=== PATIENT | male | born 2000 | race Hispanic/Latino ===

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

== ENCOUNTER 2021-10-26 20:26 | Emergency (ER) | payer MEDICAID ==
[~2021-10-26] VITALS: Ht 177.8 cm; Wt 97.5 kg
[2021-10-26 21:19] VITALS: BP 147/85
[2021-10-26] MEDS ORDERED: IBUPROFEN 800 MG TAB PO SCH (21:45)
[2021-10-26] MEDS ORDERED: ACETAMINOPHEN 500 MG TABLET PO SCH (21:45)
[2021-10-26] MEDS ORDERED: OSELTAMIVIR PHOSPHATE 75 MG CAP PO ONE (22:00)
[2021-10-26] MEDS ORDERED: 0.9%NACL 1000ML 1,000 ML IV SCH (22:00)
[2021-10-26] MEDS ORDERED: OSEL75 PO (22:54)
[2021-10-26] MEDS ORDERED: ACET-2247 PO (22:54)
[2021-10-26] MEDS ORDERED: IBUP-2070 PO (22:54)
== END 2021-10-26 23:00 | disposition home or self-care (01) ==
LOC: EDH 20:26
DX: J10.1 Influenza due to other identified influenza virus with other respiratory manifestations (principal); E86.0 Dehydration; R50.9 Fever, unspecified; Z20.822 Contact with and (suspected) exposure to COVID-19
CPT/HCPCS: 87635; 87804 ×2; 87880; 96360; 99284; C9803; J7030

== ENCOUNTER 2022-05-12 10:38 | Emergency (ER) | payer MEDICAID ==
[~2022-05-12] VITALS: Ht 177.8 cm; Wt 102.5 kg
[~2022-05-12 10:38] MED LIST: ACET-2247 PO; IBUP-2070 PO; OSEL75 PO
[2022-05-12] MEDS ORDERED: AMOX1TAB16 PO (11:24)
[2022-05-12 11:28] VITALS: BP 175/82
== END 2022-05-12 11:31 | disposition home or self-care (01) ==
LOC: EDH 10:38
DX: H66.92 Otitis media, unspecified, left ear (principal)
CPT/HCPCS: 87804

== ENCOUNTER 2022-06-29 23:24 | Emergency (ER) | payer MEDICAID ==
[~2022-06-29] VITALS: Ht 177.8 cm; Wt 100.7 kg
[~2022-06-29 23:24] MED LIST changes: +0.9%NACL 1000ML 1,000 ML IV ONE; +AMOX1TAB16 PO
[2022-06-30 00:20] LABS: APPEARANCE,URINE CLOUDY (CLEAR); BILIRUBIN,URINE NEGATIVE (NEGATIVE); COLOR,URINE YELLOW (YELLOW); GLUCOSE, URINE (UA) NEGATIVE (NEGATIVE); KETONES,URINE NEGATIVE (NEGATIVE); LEUKOCYTE ESTERASE ,URINE NEGATIVE Leu/uL (NEGATIVE); NITRATE,URINE NEGATIVE (NEGATIVE); OCCULT BLOOD,URINE NEGATIVE (NEGATIVE); PROTEIN,URINE 70 mg/dL (NEGATIVE); UROBILINOGEN,URINE 0.2 mg/dL (0.2-1.0)
[2022-06-30 00:30] LABS: POTASSIUM 3.5 mmol/L (3.5-5.1)
[2022-06-30 00:35] LABS: ALBUMIN 4.6 g/dL (3.5-5.0); TOTAL PROTEIN, SERUM 7.7 g/dL (6.0-8.3)
[2022-06-30 00:36] LABS: BASOPHILS % (AUTO) 0.1 % (0.0-5.0); EOSINOPHILS % (AUTO) 0.2 % (0.0-8.0); HEMATOCRIT 44.4 % (42-54); LYMPHOCYTES % (AUTO) 5.2 % (21.0-51.0); MEAN CORPUSCULAR HGB CONC 34.7 g/dL (32.0-36.0); MEAN CORPUSCULAR VOLUME 86.4 fL (80-100); MONOCYTES % (AUTO) 4.3 % (3.0-13.0); NEUTROPHILS % (AUTO) 89.9 % (40.0-77.0); PLATELET COUNT (AUTO) 189 K/uL (130-400); RED BLOOD CELL COUNT(AUTO) 5.14 MIL/uL (4.50-6.20); RED CELL DISTRIBUTION WIDTH 12.3 % (11.0-15.5); WHITE BLOOD COUNT (AUTO) 8.8 K/uL (4.8-10.8)
[2022-06-30] MEDS ORDERED: 0.9%NACL 1000ML 1,000 ML IV ONE (01:00)
[2022-06-30] MEDS ORDERED: ONDANSETRON 4MG INJ IVP ONE (01:00)
[2022-06-30] MEDS ORDERED: LOPERAMIDE HCL 2 MG CAP PO ONE (01:00)
[2022-06-30 01:21] LABS: AMPHET/METH SCREEN,URINE NEGATIVE (NEGATIVE); BARBITURATE SCREEN, URINE NEGATIVE (NEGATIVE); BENZODIAZEPINES SCREEN,URINE NEGATIVE (NEGATIVE); CANNABINOID SCREEN,URINE NEGATIVE (NEGATIVE); COCAINE SCREEN,URINE POSITIVE (NEGATIVE); OPIATE SCREEN,URINE NEGATIVE (NEGATIVE); PHENCYCLIDINE SCREEN,URINE NEGATIVE (NEGATIVE)
[2022-06-30 03:00] VITALS: BP 126/65
[2022-06-30] MEDS ORDERED: ONDA4TAB10 PO (03:09)
[2022-06-30] MEDS ORDERED: DIPH1TAB PO (03:09)
== END 2022-06-30 03:32 | disposition home or self-care (01) ==
LOC: EDH 23:24
DX: R55 Syncope and collapse (principal); K52.9 Noninfective gastroenteritis and colitis, unspecified; E86.9 Volume depletion, unspecified; Z79.899 Other long term (current) drug therapy
CPT/HCPCS: 99285; 71046; 82550; 84484; 80053; 80305; 83690; 85025; 36415; 93005; 81003; 96374; 96361; J7030; J2405

== ENCOUNTER 2023-05-27 21:26 | Emergency (ER) | payer BC, MEDICAID ==
[~2023-05-27] VITALS: Ht 177.8 cm; Wt 97.5 kg
[~2023-05-27 21:26] MED LIST changes: -0.9%NACL 1000ML 1,000 ML IV ONE; +DIPH1TAB PO; +ONDA4TAB10 PO
[2023-05-27 22:17] LABS: RAPID GROUP A STREP negative (NEGATIVE)
[2023-05-27 22:21] LABS: SARS-CoV-2, RNA, NAAT NEGATIVE SARS CoV-2 (NEGATIVE)
[2023-05-27 22:26] LABS: INFLUENZA TYPE A Negative For Type A (NEGATIVE); INFLUENZA TYPE B Negative For Type B (NEGATIVE)
[2023-05-27] MEDS ORDERED: GUAI600T50 PO (22:43)
[2023-05-27] MEDS ORDERED: BENZ-39 PO (22:43)
[2023-05-27 22:58] VITALS: BP 128/78; PULSE 72; RESP 20; O2SAT 100
== END 2023-05-27 23:00 | disposition home or self-care (01) ==
LOC: EDH 21:26
DX: R05.9 Cough, unspecified (principal); Z79.899 Other long term (current) drug therapy; Z20.822 Contact with and (suspected) exposure to COVID-19
CPT/HCPCS: 99283; 71045; 87635; 87880; 87804 ×2; C9803

== ENCOUNTER 2024-08-03 20:49 | Emergency (ER) | payer BC ==
[~2024-08-03] VITALS: Ht 180.3 cm; Wt 94.8 kg
[~2024-08-03 20:49] MED LIST changes: +ALBU18HF7 IH; +BENZ-39 PO; +GUAI600T50 PO; +ONDA-243 PO; -ONDA4TAB10 PO
[2024-08-03 20:50] VITALS: BP 151/93; PULSE 111; RESP 20; TEMP 100
[2024-08-03 22:30] LABS: BASOPHILS # (AUTO) 0.02 K/uL (0.00-0.20); BASOPHILS % (AUTO) 0.2 % (0.0-5.0); EOSINOPHILS # (AUTO) 0.34 K/uL (0.00-0.70); HEMATOCRIT 44.9 % (42-54); IMMATURE GRANULOCYTE ABSOLUTE 0.02 K/uL (0-1); LYMPHOCYTES # (AUTO) 1.5 K/uL (1.0-4.8); LYMPHOCYTES % (AUTO) 17.6 % (21.0-51.0); MEAN CORPUSCULAR HEMOGLOBIN 29.7 pg (27.0-33.0); MEAN CORPUSCULAR HGB CONC 34.1 g/dL (32.0-36.0); MONOCYTES # (AUTO) 0.5 K/uL (0.1-1.0); MONOCYTES % (AUTO) 5.6 % (3.0-13.0); NEUTROPHILS # (AUTO) 6.2 K/uL (1.8-7.7); NEUTROPHILS % (AUTO) 72.4 % (40.0-77.0); PLATELET COUNT (AUTO) 277 K/uL (130-400); RED BLOOD CELL COUNT(AUTO) 5.16 MIL/uL (4.50-6.20); RED CELL DISTRIBUTION WIDTH 11.7 % (11.0-15.5); WHITE BLOOD COUNT (AUTO) 8.5 K/uL (4.8-10.8)
[2024-08-03 22:39] LABS: CREATININE 1.1 mg/dL (0.5-1.3); POTASSIUM 3.4 mmol/L (3.5-5.1)
[2024-08-03 23:04] LABS: RAPID PLASMA REAGIN NONREACTIVE (NONREACTIVE)
[2024-08-03 23:05] LABS: MONOTEST NEGATIVE (NEGATIVE)
[2024-08-03] MEDS: ketOROlac 15MG/ML VIAL (15MG/ML) IV ONE (23:08)
[2024-08-03] MEDS: DiphenhydrAMINE HCL 50 MG/ML VIAL IV ONE (23:08)
[2024-08-03] MEDS: Solu-medROL 125MG VIAL IVP ONE (23:08)
[2024-08-03] MEDS: 0.9%NACL 1000ML 1,000 ML IV ONE (23:09)
[2024-08-03] MEDS: acetaMINOPHEN 325 MG TAB PO ONE (23:09)
[2024-08-03] MEDS: FAMOTIDINE 20MG VIAL IV ONE (23:10)
[2024-08-03 23:17] LABS: HIV 1&2 ANTIBODY Non-Reactive (Negative); HIV-1 p24 Antigen Non-Reactive (Negative)
[2024-08-03 23:58] VITALS: TEMP 98.7
[2024-08-04] MEDS ORDERED: DOXY100C5 PO (00:25)
--- NOTE | 2024-08-04 00:26 | ERN ---
General Chief Complaint: Skin Rash/Abscess Stated Complaint: RASH Time Seen by MD: 20:51 Time Seen by Midlevel: 20:51 Source: patient History of Present Illness Initial Comments Patient is a 23-year-old male with no significant past medical history presenting to the emergency department with a rash to bilateral upper and lower extremities that started on July 28, 2024. Patient states the rash initially started in his upper extremities and started spreading distally. Denies any recent travel. Denies any fever, or any other symptoms at this time. Allergies: Coded Allergies: No Known Drug Allergies (Unverified Allergy, Unknown, 04/21/19) Home Meds Active Scripts Doxycycline Hyclate (Doxycycline Hyclate) 100 Mg Capsule, 1 CAP PO BID for 14 Days, #28 CAP 0 Refills Prov:ISRAEL ZURITA 08/04/24 Albuterol Sulfate (Ventolin Hfa) 90 Mcg Hfa.aer.ad, 2 PUFF IH Q4HPRN PRN for wheezing for 30 Days, #18 GM 0 Refills Prov:LEE KNUTSON MD 08/02/24 Guaifenesin (Mucinex) 600 Mg Tablet.er, 600 MG PO BID PRN for COUGH/COLD SYMP TOMS, #15 TAB Prov:BAILEY VARGAS 05/27/23 Benzonatate (Tessalon Perles) 100 Mg Cap, 100 MG PO TID for cough, #30 CAP 0 Refills Prov:BAILEY VARGAS 05/27/23 Ibuprofen (Ibuprofen) 600 Mg Tablet, 600 MG PO Q6H PRN for PAIN for 10 Days, #40 TAB Prov:CHANTAL AVILESP 09/14/22 Ondansetron (Ondansetron Odt) 4 Mg Tab.rapdis, 4 MG PO TID PRN for NAUSEA/VOMITING, #15 TAB 0 Refills Prov:ACE GEIGER MD 06/30/22 Diphenoxylate HCl/Atropine (Lomotil Tablet) 1 Each Tablet, 2 TAB PO Q12H PRN for DIARRHEA for 5 Days, #10 TAB 0 Refills Prov:ACE GEIGER MD 06/30/22 Amoxicillin/Potassium Clav (Amox Tr-K Clv 875-125 mg Tab) 1 Each Tablet, 1 EACH PO BID for 7 Days, #14 TAB Prov:FER ALVAREZ MD 05/12/22 Acetaminophen (Tylenol) 325 Mg Tablet, 650 MG PO Q4HPRN, #50 TAB Prov:EVER ZURITA 10/26/21 Ibuprofen (Ibuprofen) 600 Mg Tablet, 600 MG PO TIDP PRN for PAIN, #45 TAB Prov:EVER ZURITA 10/26/21 Oseltamivir Phosphate (Tamiflu) 75 Mg Cap, 75 MG PO BID for 5 Days, #10 CAP Prov:EVER ZURITA 10/26/21 Past Medical History Past Medical History: No Pertinent History Past Surgical History: None ROS Dictation CONSTITUTIONAL: Negative except for HPI HEAD/FACE: Negative except for HPI EENT: Negative except for HPI RESPIRATORY: Negative except for HPI GASTROINTESTINAL/ABDOMINAL: Negative except for HPI GENITOURINARY: Negative except for HPI MUSCULOSKELETAL: Negative except for HPI INTEGUMENTARY: Negative except for HPI NEUROLOGICAL/PSYCH: Negative except for HPI HEMATOLOGIC/LYMPHATIC: Negative except for HPI All Systems Negative, Except as noted above. 13 point review of systems assessed and all negative except for above. Physical Exam Physical Exam Dictation Vital Signs reviewed General Appearance: Alert, oriented x 3, no acute distress, well developed, nourished. Head and Face: non-traumatic. Eyes: PERRL, pink conjunctivas, eyelid no trauma, anterior chamber with arcus senilis. Ears: Pinnas intact and no signs of trauma or erythema ear canals clear and no d ischarge TM no erythema Nose: No discharge, no bleeding. Oropharynx: Mouth normal, tongue pink, pharynx clear,no erythema, tonsils no exudates, no abscesses noted, mucous membrane moist Neck: Supple, non-tender, no thyromegaly, no masses, no JVD, no bruits Breast:Deferred Chest:No tenderness, no crepitus, no paradoxical movement, no retractions Lungs:Clear, well-ventilated, symmetric, no rales, no wheezing, no rhonchi, no stridor, good breath sounds bilaterally Heart: Regular rate, regular rhythm, no murmur, no gallops Vascular: no peripheral edema, Abdomen: Soft, positive bowel sounds, nondistended, no guarding, nontender, no rebound, no masses no hepatomegaly, no splenomegaly, no Padilla's sign, no hernias. Rectal: Deferred Genital: Deferred Neurological: Normal speech, motor function intact, sensory function intact Musculoskeletal: Neck nontender, full range of motion, back nontender, full range of motion, Extremities: nontender, full range of motion Skin: Generalized macular papular rash to bilateral upper extremities, bilateral lower extremities, torso, and bilateral palms Lymphatic: Deferred Results Laboratory and Microbiology Lab and Micro Result Laboratory Tests Test 08/03/24 22:22 White Blood Count 8.5 K/uL (4.8-10.8) Red Blood Count 5.16 MIL/uL (4.50-6.20) Hemoglobin 15.3 g/dL (14.0-18.0) Hematocrit 44.9 % (42-54) Mean Corpuscular Volume 87.0 fL (79-99) Mean Corpuscular Hemoglobin 29.7 pg (27.0-33.0) Mean Corpuscular Hemoglobin Concent 34.1 g/dL (32.0-36.0) Red Cell Distribution Width 11.7 % (11.0-15.5) Platelet Count 277 K/uL (130-400) Mean Platelet Volume 9.2 fL (7.5-10.5) Immature Granulocyte % (Auto) 0.2 % (0-1) Neutrophils (%) (Auto) 72.4 % (40.0-77.0) Lymphocytes (%) (Auto) 17.6 % (21.0-51.0) L Monocytes (%) (Auto) 5.6 % (3.0-13.0) Eosinophils (%) (Auto) 4.0 % (0.0-8.0) Basophils (%) (Auto) 0.2 % (0.0-5.0) Neutrophils # (Auto) 6.2 K/uL (1.8-7.7) Lymphocytes # (Auto) 1.5 K/uL (1.0-4.8) Monocytes # (Auto) 0.5 K/uL (0.1-1.0) Eosinophils # (Auto) 0.34 K/uL (0.00-0.70) Basophils # (Auto) 0.02 K/uL (0.00-0.20) Absolute Immature Granulocyte (auto 0.02 K/uL (0-1) Nucleated Red Blood Cells 0.0 % (0.0-0.19) Sodium Level 141 mmol/L (136-145) Potassium Level 3.4 mmol/L (3.5-5.1) L Chloride Level 105 mmol/L (101-111) Carbon Dioxide Level 28 mmol/L (21-32) Blood Urea Nitrogen 19 mg/dL (7-18) H Creatinine 1.1 mg/dL (0.5-1.3) Glomerular Filtration Rate Calc 97 mL/min (>90) Random Glucose 115 mg/dL (70-105) H Total Calcium 8.9 mg/dL (8.5-10.1) Rapid Plasma Reagin NONREACTIVE (NONREACTIVE) Treponema pallidum Antibody (EIA) Non Reactive (Non Reactive) Brucella Total Antibody Agglutin NEGATIVE (NEGATIVE) Monoscreen NEGATIVE (NEGATIVE) HIV (1&2) Antibody Non-Reactive (Negative) HIV P24 Antigen, Qualitative Non-Reactive (Negative) Paratyphoid A Antibody NEGATIVE (NEGATIVE) Paratyphoid B Antibody NEGATIVE (NEGATIVE) Proteus OX-19 Antibody NEGATIVE (NEGATIVE) Typhoid H Antibody NEGATIVE (NEGATIVE) Typhoid O Antibody NEGATIVE (NEGATIVE) Labs Reviewed?: Yes MDM MDM: Differential diagnosis: Syphilis, Akira mountain spotted fever, Lyme disease, viral exanthem There are no social concerns with this patient. Prescription drug management Prescriptions will include: Doxycycline Medical management and examination interpretation discussions were had by me with other qualified healthcare professionals as indicated for the patient's care. ED Course Orders Procedure Category Date Status Time Cbc With Differential LAB 08/03/24 Complete 21:02 Basic Metabolic Panel LAB 08/03/24 Complete 21:02 0.9%Nacl 1000ml (Ns PHA 08/03/24 Complete 1000ml) 21:30 Methylprednisolone PHA 08/03/24 Complete Succ 125mg (Solu-Medr 21:30 Diphenhydramine Hcl PHA 08/03/24 Complete (Benadryl Inj) 21:30 Famotidine 20mg Vial PHA 08/03/24 Complete (Pepcid 20mg Vial) 21:30 Febrile Agglutinins LAB 08/03/24 Complete Panel 21:05 Monotest LAB 08/03/24 Complete 21:05 Hiv 1-2 W/Reflex To LAB 08/03/24 Complete Confirm 21:05 Rapid Plasma Reagin LAB 08/03/24 Complete 21:05 Treponema Pallidum Ab LAB 08/03/24 Complete Igg-Tppa 21:05 Ketorolac PHA 08/03/24 Complete Tromethamine 15mg/Ml 23:00 Acetaminophen 325 Tab PHA 08/03/24 Complete (Tylenol 325mg Tab 23:00 Vital Signs Date Time Temp Pulse Resp B/P (MAP) Pulse Ox O2 Delivery O2 Flow Rate FiO2 08/03/24 23:09 100.0 08/03/24 20:50 100.0 111 20 151/93 97 Room Air DX & DISP Disposition: Discharge Departure Impression: Primary Impression: Generalized rash Condition: Stable Scripts Doxycycline Hyclate (Doxycycline Hyclate) 100 Mg Capsule 1 CAP PO BID for 14 Days, #28 CAP 0 Refills Prov: ISRAEL ZURITA 08/04/24 Additional Instructions: Your blood work today is unremarkable. Have started you on antibiotics for outpatient management. I have given you an outpatient follow up with an infectious disease specialist as well as a plasterer maintenance. Referrals: SELF,REFERRAL (PCP) YENY GORDON MD, EMMANUEL O MD Time of Disposition: 00:25 I have reviewed the case, and I agree with, Diagnosis and Plan I performed the substantive portion of the visit. I have reviewed and personally made and approve the management plan that is documented in the note by myself or the BANDAR. I acknowledge for responsibility for the patient's ross gement plan. ISRAEL ZURITA Aug 04, 2024 00:26
== END 2024-08-04 00:34 | disposition home or self-care (01) ==
LOC: EDH 20:49
DX: R21 Rash and other nonspecific skin eruption (principal); Z79.899 Other long term (current) drug therapy; Z79.2 Long term (current) use of antibiotics
CPT/HCPCS: 99284; 96374; 96375; 86780; 86592; 80048; 85025; 86308; 86000 ×6; 86701; 87390; 36415; J1885; J2919; J1200; J3490; J7030

== ENCOUNTER 2024-08-06 13:23 | Emergency (ER) | payer BC ==
[~2024-08-06] VITALS: Ht 180.3 cm; Wt 94.8 kg
[~2024-08-06 13:23] MED LIST changes: +DOXY100C5 PO
[2024-08-06 13:46] LABS: BASOPHILS # (AUTO) 0.03 K/uL (0.00-0.20); BASOPHILS % (AUTO) 0.5 % (0.0-5.0); EOSINOPHILS # (AUTO) 0.09 K/uL (0.00-0.70); EOSINOPHILS % (AUTO) 1.5 % (0.0-8.0); HEMATOCRIT 44.5 % (42-54); IMMATURE GRANULOCYTE ABSOLUTE 0.02 K/uL (0-1); LYMPHOCYTES # (AUTO) 2.1 K/uL (1.0-4.8); LYMPHOCYTES % (AUTO) 33.9 % (21.0-51.0); MEAN CORPUSCULAR HEMOGLOBIN 29.8 pg (27.0-33.0); MEAN CORPUSCULAR HGB CONC 34.6 g/dL (32.0-36.0); MEAN CORPUSCULAR VOLUME 86.2 fL (79-99); MONOCYTES # (AUTO) 0.4 K/uL (0.1-1.0); MONOCYTES % (AUTO) 6.3 % (3.0-13.0); NEUTROPHILS # (AUTO) 3.5 K/uL (1.8-7.7); NEUTROPHILS % (AUTO) 57.5 % (40.0-77.0); PLATELET COUNT (AUTO) 256 K/uL (130-400); RED BLOOD CELL COUNT(AUTO) 5.16 MIL/uL (4.50-6.20); RED CELL DISTRIBUTION WIDTH 12.1 % (11.0-15.5); WHITE BLOOD COUNT (AUTO) 6.1 K/uL (4.8-10.8)
--- NOTE | 2024-08-06 13:46 | EKG ---
[facility] Test Date: 2024-08-06 Test Time: 13:44:27 Pat Name: JUANJO COELHO Department: ED Room: Gender: M Waste Recycler: syncope : 2000 Requested By: VANESSA CASSIDY Order Number: [id number] Reading MD: Shahab Harris Measurements Intervals [place] Rate: 75 P: 42 ID: [id number] QRS: 2 QRSD: 93 T: 20 QT: 365 QTc: 408 Interpretive Statements Sinus rhythm Compared to ECG 06/30/2022 00:00:33 No significant changes RSR' IN V1 OR V2, PROBABLY NORMAL VARIANT Electronically Signed On 08-07-2024 10:23:22 DOCENT COORDINATOR by Shahab Harris Please click the below link to view image of tracing.
[2024-08-06] MEDS: 0.9%NACL 1000ML 1,000 ML IV ONE (13:48)
[2024-08-06] MEDS: ondanSETRON 4MG INJ IVP ONE (13:48)
[2024-08-06 13:52] LABS: CREATININE 1.1 mg/dL (0.5-1.3); POTASSIUM 3.2 mmol/L (3.5-5.1)
[2024-08-06 14:01] LABS: BILIRUBIN,TOTAL 0.7 mg/dL (0.2-1.0); TOTAL PROTEIN, SERUM 7.6 g/dL (6.0-8.3)
--- NOTE | 2024-08-06 14:30 | NUR ---
PT REMINDED OF URINE ORDER AND ENCOURAGED TO PROVIDE UA SPECIMEN
[2024-08-06 14:41] LABS: ADD UA MICROSCOPIC YES; APPEARANCE,URINE CLOUDY (CLEAR); BILIRUBIN,URINE NEGATIVE (NEGATIVE); COLOR,URINE YELLOW (YELLOW); GLUCOSE, URINE (UA) NEGATIVE (NEGATIVE); KETONES,URINE NEGATIVE (NEGATIVE); LEUKOCYTE ESTERASE ,URINE NEGATIVE Leu/uL (NEGATIVE); NITRATE,URINE NEGATIVE (NEGATIVE); OCCULT BLOOD,URINE NEGATIVE (NEGATIVE); PROTEIN,URINE 30 mg/dL (NEGATIVE); UROBILINOGEN,URINE 0.2 mg/dL (0.2-1.0)
[2024-08-06 14:44] LABS: BACTERIA,URINE RARE /HPF (None Seen); MUCUS,URINE FEW LPF (None Seen); SQUAMOUS EPITHELIAL CELL,UR RARE /HPF (0-2)
[2024-08-06 14:49] LABS: AMPHET/METH SCREEN,URINE NEGATIVE (NEGATIVE); BARBITURATE SCREEN, URINE NEGATIVE (NEGATIVE); BENZODIAZEPINES SCREEN,URINE NEGATIVE (NEGATIVE); CANNABINOID SCREEN,URINE NEGATIVE (NEGATIVE); COCAINE SCREEN,URINE NEGATIVE (NEGATIVE); OPIATE SCREEN,URINE NEGATIVE (NEGATIVE); PHENCYCLIDINE SCREEN,URINE NEGATIVE (NEGATIVE)
[2024-08-06 15:29] VITALS: BP 115/67; PULSE 73; RESP 18; TEMP 98.4; O2SAT 100
--- NOTE | 2024-08-06 15:30 | ERN ---
ED Note History of Present Illness Stated Complaint: SYNCOPE Chief Complaint: Syncope Time Seen by MD: 13:27 Dictation: Patient is a 23-year-old male who presented to the ER after episode of syncope, stated he pass out, on his way to the hospital he vomiting also. Patient has been treated for a rash with antibiotics he states. He does have a rash over his body Allergies: Coded Allergies: No Known Drug Allergies (Unverified Allergy, Unknown, 04/21/19) Home Meds Active Scripts Doxycycline Hyclate (Doxycycline Hyclate) 100 Mg Capsule, 1 CAP PO BID for 14 Days, #28 CAP 0 Refills Prov:ISRAEL ZURITA 08/04/24 Albuterol Sulfate (Ventolin Hfa) 90 Mcg Hfa.aer.ad, 2 PUFF IH Q4HPRN PRN for wheezing for 30 Days, #18 GM 0 Refills Prov:LEE KNUTSON MD 08/02/24 Guaifenesin (Mucinex) 600 Mg Tablet.er, 600 MG PO BID PRN for COUGH/COLD SYMPTOMS, #15 TAB Prov:BAILEY VARGAS 05/27/23 Benzonatate (Tessalon Perles) 100 Mg Cap, 100 MG PO TID for cough, #30 CAP 0 Refills Prov:BAILEY VARGAS 05/27/23 Ibuprofen (Ibuprofen) 600 Mg Tablet, 600 MG PO Q6H PRN for PAIN for 10 Days, #40 TAB Prov:CHANTAL AVILESP 09/14/22 Ondansetron (Ondansetron Odt) 4 Mg Tab.rapdis, 4 MG PO TID PRN for NAUSEA/VOMITING, #15 TAB 0 Refills Prov:ACE GEIGER MD 06/30/22 Diphenoxylate HCl/Atropine (Lomotil Tablet) 1 Each Tablet, 2 TAB PO Q12H PRN for DIARRHEA for 5 Days, #10 TAB 0 Refills Prov:ACE GEIGER MD 06/30/22 Amoxicillin/Potassium Clav (Amox Tr-K Clv 875-125 mg Tab) 1 Each Tablet, 1 EACH PO BID for 7 Days, #14 TAB Prov:FER ALVAREZ MD 05/12/22 Acetaminophen (Tylenol) 325 Mg Tablet, 650 MG PO Q4HPRN, #50 TAB Prov:EVER ZURITA 10/26/21 Ibuprofen (Ibuprofen) 600 Mg Tablet, 600 MG PO TIDP PRN for PAIN, #45 TAB Prov:EVER ZURITA SIMRAN 10/26/21 Oseltamivir Phosphate (Tamiflu) 75 Mg Cap, 75 MG PO BID for 5 Days, #10 CAP Prov:EVER ZURITA SIMRAN 10/26/21 Past Medical History Past Medical History: No Pertinent History Surgical History: None Review of System Dictation NEGATIVE EXCEPT PER HPI Constitutional: Negative for fever,chills, and weight loss Eyes: Negative for injury, pain,redness, and discharge ENT: Negative for injury,pain or swelling Cardiovascular: denies chest pain, palpitations, and edema Respiratory: Negative for shortness of breath, cough, and wheezing, Abdomen/GI: Negative for abdominal pain, nausea, vomiting, diarrhea, and constipation Back: Negative for injury and pain : Negative for injury, bleeding and discharge MS/Extremity: Negative for injury and deformity Skin: Has rash all over his body Neuro: Syncope episode Psych: Negative for suicide ideation, homicidal ideation, and hallucinations Initial Vital Sign VS Vital Signs Date Time Temp Pulse Resp B/P (MAP) Pulse Ox O2 Delivery O2 Flow Rate FiO2 08/06/24 13:26 98.4 105 16 144/89 99 Room Air 08/06/24 15:29 0 21 Physical Exam Dictation General: awake, alert, NAD Head/Face: Normocephalic, atraumatic Eyes: PERRL, EOMI, vision at baseline ENT: oral cavity clear, TMs clear, no signs of infection Neck: Trachea midline, supple, no nuchal rigidity Cardiovascular: RRR, normal S1/S2, No MRGs, no JVD Respiratory: CTAB, no respiratory distress, No rales or wheezes Abdomen: Soft , no tender Skin: Rash over his body, with a erythema MS/Extremity: Pulses equal, no cyanosis, neurovascular intact, FROM Neuro: COAx4, GCS 15, strength 5/5, CN 2-12 intact, normal cerebellar exam, normal gait, Psych: Normal behavior, mood, and affect normal Results (Laboratory/Radiology) Laboratory/Radiology Laboratory Tests Test 08/06/24 13:35 08/06/24 14:31 White Blood Count 6.1 K/uL (4.8-10.8) Red Blood Count 5.16 MIL/uL (4.50-6.20) Hemoglobin 15.4 g/dL (14.0-18.0) Hematocrit 44.5 % (42-54) Mean Corpuscular Volume 86.2 fL (79-99) Mean Corpuscular Hemoglobin 29.8 pg (27.0-33.0) Mean Corpuscular Hemoglobin Concent 34.6 g/dL (32.0-36.0) Red Cell Distribution Width 12.1 % (11.0-15.5) Platelet Count 256 K/uL (130-400) Mean Platelet Volume 9.5 fL (7.5-10.5) Immature Granulocyte % (Auto) 0.3 % (0-1) Neutrophils (%) (Auto) 57.5 % (40.0-77.0) Lymphocytes (%) (Auto) 33.9 % (21.0-51.0) Monocytes (%) (Auto) 6.3 % (3.0-13.0) Eosinophils (%) (Auto) 1.5 % (0.0-8.0) Basophils (%) (Auto) 0.5 % (0.0-5.0) Neutrophils # (Auto) 3.5 K/uL (1.8-7.7) Lymphocytes # (Auto) 2.1 K/uL (1.0-4.8) Monocytes # (Auto) 0.4 K/uL (0.1-1.0) Eosinophils # (Auto) 0.09 K/uL (0.00-0.70) Basophils # (Auto) 0.03 K/uL (0.00-0.20) Absolute Immature Granulocyte (auto 0.02 K/uL (0-1) Nucleated Red Blood Cells 0.0 % (0.0-0.19) Sodium Level 138 mmol/L (136-145) Potassium Level 3.2 mmol/L (3.5-5.1) L Chloride Level 102 mmol/L (101-111) Carbon Dioxide Level 24 mmol/L (21-32) Blood Urea Nitrogen 20 mg/dL (7-18) H Creatinine 1.1 mg/dL (0.5-1.3) Glomerular Filtration Rate Calc 97 mL/min (>90) Random Glucose 97 mg/dL (70-105) Total Calcium 8.9 mg/dL (8.5-10.1) Total Bilirubin 0.7 mg/dL (0.2-1.0) Aspartate Amino Transf (AST/SGOT) 9 U/L (10-37) L Alanine Aminotransferase (ALT/SGPT) 18 U/L (12-78) Alkaline Phosphatase 78 U/L (50-136) Total Protein 7.6 g/dL (6.0-8.3) Albumin 4.0 g/dL (3.5-5.0) Urine Color YELLOW (YELLOW) Urine Appearance CLOUDY (CLEAR) H Urine pH 7.0 (5.0-8.0) Urine Specific [place] 1.023 (1.001-1.031) Urine Protein 30 mg/dL (NEGATIVE) H Urine Glucose (UA) NEGATIVE mg/dL (NEGATIVE) Urine Ketones NEGATIVE mg/dL (NEGATIVE) Urine Occult Blood NEGATIVE (NEGATIVE) Urine Nitrate NEGATIVE (NEGATIVE) Urine Bilirubin NEGATIVE mg/dL (NEGATIVE) Urine Urobilinogen 0.2 mg/dL (0.2-1.0) Urine Leukocyte Esterase NEGATIVE [place]/uL Urine RBC 2-5 /HPF (0-1) H Urine WBC 2-5 /HPF (0-1) H Urine Squamous Epithelial Cells RARE /HPF (0-2) Urine Bacteria RARE /HPF (None Seen) Urine Opiates Screen NEGATIVE (NEGATIVE) Urine Barbiturates Screen NEGATIVE (NEGATIVE) Urine Phencyclidine Screen NEGATIVE (NEGATIVE) Urine Amphetamines Screen NEGATIVE (NEGATIVE) Urine Benzodiazepines Screen NEGATIVE (NEGATIVE) Urine Cocaine Screen NEGATIVE (NEGATIVE) Urine Marijuana (THC) Screen NEGATIVE (NEGATIVE) ED Course ED Course Orders Procedure Category Date Status Time Drug Screen Urine LAB 08/06/24 Complete 13:29 Urinalysis Profile LAB 08/06/24 Complete 13:29 Cbc With Differential LAB 08/06/24 Complete 13:29 Comprehensive LAB 08/06/24 Complete Metabolic Panel 13:29 12 Lead Ekg Tracing- EKG 08/06/24 Complete Technical 13:29 0.9%Nacl 1000ml (Ns PHA 08/06/24 Complete 1000ml) 14:00 Ondansetron 4mg Inj PHA 08/06/24 Complete (Zofran 4mg Inj) 14:00 Current Medications Medications (Trade) Dose Ordered Sig/Marina Route PRN Reason Start Time Stop Time Status Last Admin Dose Admin Ondansetron HCl (zoFRAN 4MG INJ) 4 mg ONCE ONCE IVP 08/06/24 14:00 08/06/24 14:01 DC 08/06/24 13:48 Sodium Chloride 1,000 ml @ 0 mls/hr ONCE ONCE IV 08/06/24 14:00 08/06/24 14:01 DC 08/06/24 13:48 Vital Signs Date Time Temp Pulse Resp B/P (MAP) Pulse Ox O2 Delivery O2 Flow Rate FiO2 08/06/24 15:29 73 18 115/67 100 Room Air* 0 21 08/06/24 13:26 98.4 105 16 144/89 99 Room Air Medical Decision Making MDM 23-year-old male who reports a syncope at home associated with the vomiting in the way to the hospital. Possible dehydration Laboratory workup is within normal limits IV fluids 1 L bolus given No source identified for his symptoms. Patient was evaluated at bedside and he is hemodynamically stable. Patient he will be discharged home with recommended to follow up with the primary care physician. Regarding the rash that he has for few days he must follow up with his primary care physician as well he will need a dermatology workup. DX & DISP Disposition: Discharge Departure Impression: Primary Impression: Generalized rash Additional Impressions: Volume depletion, Syncope Condition: Stable Additional Instructions: RETURN TO ER FOR ANY ACUTE OR WORSENING SYMPTOMS. FOLLOW-UP IN 1-2 DAYS WITH PRIMARY PROVIDER FOR RECHECK OF TODAY'S SYMPTOMS. Referrals: SELF,REFERRAL (PCP) HUNG CARRASCO MD Aug 06, 2024 15:30
== END 2024-08-06 15:55 | disposition home or self-care (01) ==
LOC: EDH 13:23
DX: R55 Syncope and collapse (principal); E86.9 Volume depletion, unspecified; R21 Rash and other nonspecific skin eruption; Z79.899 Other long term (current) drug therapy
CPT/HCPCS: 99284; 96374; 96361; 80053; 80305; 85025; 36415; 93005; 81001; J7030; J2405

== ENCOUNTER 2025-03-17 12:52 | Emergency (ER) | payer BC ==
[~2025-03-17] VITALS: Ht 180.3 cm; Wt 104.3 kg
[~2025-03-17 12:52] MED LIST changes: +IBUP-1492 PO; -IBUP-2070 PO
[2025-03-17] MEDS: HYDROcodone/APAP 5/325 1 TAB TABLET PO ONE (13:25)
[2025-03-17 14:13] LABS: IMMATURE GRANULOCYTE ABSOLUTE 0.01 K/uL (0-1); NUCLEATED RED BLOOD CELLS 0.0 % (0.0-0.19); PLATELET COUNT (AUTO) 193 K/uL (130-400); RED BLOOD CELL COUNT(AUTO) 4.55 MIL/uL (4.50-6.20); RED CELL DISTRIBUTION WIDTH 12.5 % (11.0-15.5); WHITE BLOOD COUNT (AUTO) 4.2 K/uL (4.8-10.8)
[2025-03-17 14:24] LABS: CREATININE 0.9 mg/dL (0.5-1.3); GLOMERULAR FILTR. RATE CALC 123.0 mL/min (>90); GLUCOSE,RANDOM 96.0 mg/dL (70-105); SODIUM SERUM 142.0 mmol/L (136-145); UREA NITROGEN, BLOOD 20.0 mg/dL (7-18)
[2025-03-17 14:29] LABS: CREATINE KINASE, TOTAL 78.0 U/L (21-232)
[2025-03-17] MEDS ORDERED: BACL10TA PO (14:50)
[2025-03-17] MEDS ORDERED: KETO10TA2 PO (14:50)
--- NOTE | 2025-03-17 14:50 | ERN ---
General Chief Complaint: Back Pain-No Injury Stated Complaint: BACK PAIN Time Seen by MD: 12:54 Time Seen by Midlevel: 12:54 Source: patient History of Present Illness Initial Comments Patient is a 24-year-old male with no significant past medical history presenting to the emergency department for evaluation of lower back pain that has been ongoing for the last two days. Patient denies any direct injury or trauma to the area. Denies any numbness/weakness to bilateral lower extrem ities. Denies any urinary/bowel incontinence. Patient states he woke up one day and the pain was there. Allergies: Coded Allergies: No Known Drug Allergies (Unverified Allergy, Unknown, 04/21/19) Home Meds Active Scripts Doxycycline Hyclate (Doxycycline Hyclate) 100 Mg Capsule, 1 CAP PO BID for 14 Days, #28 CAP 0 Refills Prov:ISRAEL ZURITA 08/04/24 Albuterol Sulfate (Ventolin Hfa) 90 Mcg Hfa.aer.ad, 2 PUFF IH Q4HPRN PRN for wheezing for 30 Days, #18 GM 0 Refills Prov:LEE KNUTSON MD 08/02/24 Guaifenesin (Mucinex) 600 Mg Tablet.er, 600 MG PO BID PRN for COUGH/COLD SYMPTOMS, #15 TAB Prov:BAILEY VARGAS 05/27/23 Benzonatate (Tessalon Perles) 100 Mg Cap, 100 MG PO TID for cough, #30 CAP 0 Refills Prov:BAILEY VARGAS 05/27/23 Ibuprofen (Ibuprofen) 600 Mg Tablet, 600 MG PO Q6H PRN for PAIN for 10 Days, #40 TAB Prov:CHANTAL AVILES 09/14/22 Ondansetron (Ondansetron Odt) 4 Mg Tab.rapdis, 4 MG PO TID PRN for NAUSEA/VOMITING, #15 TAB 0 Refills Prov:ACE GEIGER MD 06/30/22 Diphenoxylate HCl/Atropine (Lomotil Tablet) 1 Each Tablet, 2 TAB PO Q12H PRN for DIARRHEA for 5 Days, #10 TAB 0 Refills Prov:ACE GEIGER MD 06/30/22 Amoxicillin/Potassium Clav (Amox Tr-K Clv 875-125 mg Tab) 1 Each Tablet, 1 EACH PO BID for 7 Days, #14 TAB Prov:FER ALVAREZ MD 05/12/22 Acetaminophen (Tylenol) 325 Mg Tablet, 650 MG PO Q4HPRN, #50 TAB Prov:EVER ZURITA 10/26/21 Ibuprofen (Ibuprofen) 600 Mg Tablet, 600 MG PO TIDP PRN for PAIN, #45 TAB Prov:EVER ZURITA 10/26/21 Oseltamivir Phosphate (Tamiflu) 75 Mg Cap, 75 MG PO BID for 5 Days, #10 CAP Prov:EVER ZURITA 10/26/21 Past Medical History Past Medical History: No Pertinent History Medical History Other: denies pmhx Past Surgical History: None ROS Dictation CONSTITUTIONAL: Negative except for HPI HEAD/FACE: Negative except for HPI EENT: Negative except for HPI RESPIRATORY: Negative except for HPI GASTROINTESTINAL/ABDOMINAL: Negative except for HPI GENITOURINARY: Negative except for HPI MUSCULOSKELETAL: Negative except for HPI INTEGUMENTARY: Negative except for HPI NEUROLOGICAL/PSYCH: Negative except for HPI HEMATOLOGIC/LYMPHATIC: Negative except for HPI All Systems Negative, Except as noted above. 13 point review of systems assessed and all negative except for above. Physical Exam Physical Exam Dictation Vital Signs reviewed General Appearance: Alert, oriented x 3, no acute distress, well developed, nourished. Head and Face: non-traumatic. Eyes: PERRL, pink conjunctivas, eyelid no trauma, anterior chamber with arcus senilis. Ears: Pinnas intact and no signs of trauma or erythema ear canals clear and no discharge TM no erythema Nose: No discharge, no bleeding. Oropharynx: Mouth normal, tongue pink, pharynx clear,no erythema, tonsils no exudates, no abscesses noted, mucous membrane moist Neck: Supple, non-tender, no thyromegaly, no masses, no JVD, no bruits Breast:Deferred Chest:No tenderness, no crepitus, no paradoxical movement, no retractions Lungs:Clear, well-ventilated, symmetric, no rales, no wheezing, no rhonchi, no stridor, good breath sounds bilaterally Heart: Regular rate, regular rhythm, no murmur, no gallops Vascular: no peripheral edema, Abdomen: Soft, positive bowel sounds, nondistended, no guarding, nontender, no rebound, no masses no hepatomegaly, no splenomegaly, no Padilla's sign, no hernias. Rectal: Deferred Genital: Deferred Neurological: Normal speech, motor function intact, sensory function intact Musculoskeletal: Neck nontender, full range of motion, back nontender, full range of motion, Extremities: nontender, full range of motion Skin: Color pink, dry, no turgor, no rash, no lacerations, no abrasions, no co ntusions. Lymphatic: Deferred Results Laboratory and Microbiology Lab and Micro Result Laboratory Tests Test 03/17/25 13:46 White Blood Count 4.2 K/uL (4.8-10.8) L Red Blood Count 4.55 MIL/uL (4.50-6.20) Hemoglobin 13.8 g/dL (14.0-18.0) L Hematocrit 39.5 % (42-54) L Mean Corpuscular Volume 86.8 fL (79-99) Mean Corpuscular Hemoglobin 30.3 pg (27.0-33.0) Mean Corpuscular Hemoglobin Concent 34.9 g/dL (32.0-36.0) Red Cell Distribution Width 12.5 % (11.0-15.5) Platelet Count 193 K/uL (130-400) Mean Platelet Volume 9.9 fL (7.5-10.5) Immature Granulocyte % (Auto) 0.2 % (0-1) Neutrophils (%) (Auto) 61.6 % (40.0-77.0) Lymphocytes (%) (Auto) 31.1 % (21.0-51.0) Monocytes (%) (Auto) 6.2 % (3.0-13.0) Eosinophils (%) (Auto) 0.7 % (0.0-8.0) Basophils (%) (Auto) 0.2 % (0.0-5.0) Neutrophils # (Auto) 2.6 K/uL (1.8-7.7) Lymphocytes # (Auto) 1.3 K/uL (1.0-4.8) Monocytes # (Auto) 0.3 K/uL (0.1-1.0) Eosinophils # (Auto) 0.03 K/uL (0.00-0.70) Basophils # (Auto) 0.01 K/uL (0.00-0.20) Absolute Immature Granulocyte (auto 0.01 K/uL (0-1) Nucleated Red Blood Cells 0.0 % (0.0-0.19) Sodium Level 142 mmol/L (136-145) Potassium Level 4.2 mmol/L (3.5-5.1) Chloride Level 105 mmol/L (101-111) Carbon Dioxide Level 32 mmol/L (21-32) Blood Urea Nitrogen 20 mg/dL (7-18) H Creatinine 0.9 mg/dL (0.5-1.3) Glomerular Filtration Rate Calc 123 mL/min (>90) Random Glucose 96 mg/dL (70-105) Total Calcium 8.7 mg/dL (8.5-10.1) Total Creatine Kinase 78 U/L (21-232) # Labs Reviewed?: Yes MDM MDM: Differential diagnosis: Urinary tract infection, pyelonephritis, lumbar strain, musculoskeletal pain There are no social concerns with this patient. Prescription drug management Prescriptions will include: Toradol and baclofen Medical management and examination interpretation discussions were had by me with other qualified healthcare professionals as indicated for the patient's care. ED Course Orders Procedure Category Date Status Time Lumbar Spine 2-3vws RAD 03/17/25 Taken 13:00 Ketorolac PHA 03/17/25 Complete Tromethamine 30mg/Ml 13:00 Hydrocodone/Apap PHA 03/17/25 Complete 5/325 (Benge 5/325mg) 13:00 Cbc With Differential LAB 03/17/25 Complete 13:36 Basic Metabolic Panel LAB 03/17/25 Complete 13:36 Creatine Kinase, Total LAB 03/17/25 Complete 13:36 Current Medications Medications (Trade) Dose Ordered Sig/Marina Route PRN Reason Start Time Stop Time Status Last Admin Dose Admin Acetaminophen/ Hydrocodone Bitart (NORco 5/325MG) 1 tab ONCE ONCE PO 03/17/25 13:00 03/17/25 13:05 DC 03/17/25 13:25 Ketorolac Tromethamine (toRADol) 30 mg ONCE ONCE IM 03/17/25 13:00 03/17/25 13:05 DC 03/17/25 13:25 Vital Signs Date Time Temp Pulse Resp B/P (MAP) Pulse Ox O2 Delivery O2 Flow Rate FiO2 03/17/25 12:57 98.8 79 16 139/78 98 Room Air* 0 21 03/17/25 12:54 79 16 139/78 98 Room Air 0 DX & DISP Disposition: Discharge Departure Impression: Primary Impression: Musculoskeletal pain Condition: Stable Scripts Baclofen (Baclofen) 10 Mg Tablet 1 TAB PO TID for 7 Days, #21 TAB 0 Refills Prov: ISRAEL ZURITA 03/17/25 Ketorolac Tromethamine (Ketorolac Tromethamine) 10 Mg Tablet 1 TAB PO TID for pain for 5 Days, #15 TAB 0 Refills Prov: ISRAEL ZURITA 03/17/25 Additional Instructions: Your blood work today is unremarkable. No signs of kidney infection or kidney impairment. No signs of rhabdomyolysis. Your electrolytes are normal. Your x-ray of your lower back does not show any abnormalities. Given your unremarkable workup and x-ray pain may be musculoskeletal in nature. I have given you a prescription for ketorolac and baclofen. Continue to monitor your symptoms. If you develop any weakness, numbness, tingling to your lower ex tremities please report to the ER for further evaluation. If you have any urinary or bowel incontinence report to the ER. Follow up with your primary care doctor in 1-2 days for repeat evaluation. Referrals: SELF,REFERRAL (PCP) Time of Disposition: 14:48 I have reviewed the case, and I agree with, Diagnosis and Plan I performed the substantive portion of the visit. I have reviewed and personally made and approve the management plan that is documented in the note by myself or the BANDAR. I acknowledge for responsibility for the patient's management plan. ISRAEL ZURITA Mar 17, 2025 14:50
[2025-03-17 15:03] VITALS: BP 136/78; PULSE 82; RESP 16; TEMP 98.8; O2SAT 98
--- NOTE | 2025-03-17 15:03 | HMCIMG ---
EXAM: CR Lumbar Spine, 3 View. CLINICAL HISTORY: low back pain COMPARISON: None provided. FINDINGS: BONES: No acute fracture or aggressive appearing osseous lesion. ALIGNMENT: Alignment is within normal limits. No significant scoliosis. DISCS / DEGENERATIVE CHANGES: Chronic L5 spondylolysis. No listhesis. To space narrowing may reflect mild disc disease at L5-S1. SOFT TISSUES: The soft tissues are unremarkable. IMPRESSION: 1. No acute findings. 2. Chronic L5 spondylolysis without listhesis. /Novi
== END 2025-03-17 15:09 | disposition home or self-care (01) ==
LOC: EDH 12:52
DX: M54.50 Low back pain, unspecified (principal); Z79.899 Other long term (current) drug therapy
CPT/HCPCS: 99284; 82550; 80048; 85025; 36415; 72100; 96372; J1885